=== PATIENT | female | born 1990 | race Caucasian/White ===

== ENCOUNTER 2017-08-06 14:10 | Inpatient (IN) | payer OTHER ==
[2017-08-06 18:47] VITALS: BMI 37.0
[2017-08-06] MEDS ORDERED: DEXTROSE 5%-LACTATED RINGERS 1,000 ML IV SCH (19:00)
[2017-08-06 19:41] LABS: INR 0.87 (0.82-1.09); PROTHROMBIN TIME (PATIENT) 9.8 SEC (9.98-11.88)
[2017-08-06 19:44] LABS: ACTIVATED PTT 30.5 SECONDS (26.9-34.4)
[2017-08-06 20:01] LABS: ANION GAP 10 (8-16); CALCIUM 8.7 mg/dL (8.5-10.1); CO2 22 mmol/L (21-32); CREATININE 0.6 mg/dL (0.55-1.02); GLUCOSE,RANDOM 88 mg/dL (74-106)
[2017-08-06 20:59] LABS: BASOPHIL 0.3 % (0-2.0); EOSINOPHIL 1.2 % (0-4.5); MCH 34.2 pg (25.7-33.7); MCHC 34.1 g/dl (32.0-36.0); MEAN CELL VOLUME 100.2 fl (80-96); MEAN PLT VOLUME 8.8 fl (7.5-11.1); PLATELET COUNT 252 K/MM3 (134-434); WHITE BLOOD COUNT 9.9 K/mm3 (4.0-10.0)
[2017-08-06] MEDS ORDERED: BUTORPHANOL TARTRATE 1 MG/ML VIAL IVPB ONE (23:30)
[2017-08-06] MEDS ORDERED: PROMETHAZINE HCL 25 MG/1 ML VIAL IVPB ONE (23:30)
[2017-08-07] MEDS ORDERED: OXYTOCIN 15 UNITS/ LR 250 ML 250 ML IVPB SCH ×2 (06:00→06:45)
[2017-08-07] MEDS ORDERED: BUTORPHANOL TARTRATE 1 MG/ML VIAL IVPB ONE (06:00)
[2017-08-07] MEDS ORDERED: PROMETHAZINE HCL 25 MG/1 ML VIAL IVPB ONE (06:00)
--- NOTE | 2017-08-07 06:40 | HP ---
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: Alzheimer's, CVA, Dementia, Migraine, Multiple Sclerosis, Peripheral Neuropathy, Parkinson's, Seizure, Syncope, TIA, Vertigo, Other Cardiovascular: No: AFIB, Aneurysm, Aortic Insufficiency, Aortic Stenosis, CAD, CHF, Deep Vein Thrombosis, HTN, Hyperlipdemia, MD, Mitral Insufficiency, Mitral Stenosis, Murmur, Pulmonary Hypertension, Other Pulmonary: No: Asthma, Bronchitis, Cancer, COPD, O2 Dependent, Pneumonia, Previously Intubated, Pulmonary Embolus, Pulmonary Fibrosis, Sleep Apnea, Other Gastrointestinal: No: Ascites, Cancer, Constipation, Crohn's Disease, Diverticulitis, Diverticulosis, Esophageal Varices, Gastritis, GERD, GI Bleed, Hemorrhoids, Hiatal Hernia, Inflamatory Bowel Disease, Irritable Bowel Disease, Pancreatitis, Peptic Ulcer Disease, Ulcerative Colitis, Other Hepatobiliary: No: Cirrhosis, Cholelithiasis, Cholecystitis, Choledocholithiasis , Hepatitis A, Hepatitis B, Hepatitis C, Other Renal/: No: Renal Failure, Renal Inusuff, BPH, Cancer, Hematuria, Hemodialysis , Neurogenic Bladder, Renal Calculi, UTI, Other Reproductive: No: Ectopic , Endometriosis, Fibroids, PID, Polycystic Ovary Syndrome, Postmenopausal, Other ...: 1 ...Para: 0 Heme/Onc: No: Anemia, B12 Deficiency, Bleeding Disorder, Cancer, Current Chemotherapy, Current Radiation Therapy, Hemochromatosis, Hypercoaguable State, Myeloproliferative Synd, Sickle Cell Disease, Sickle Cell Trait, Thrombocytopenia, Other Infectious Disease: No: AIDS, C-Diff, Herpes Zoster, HIV, MRSA, STD's, Tuberculosis, VREF, Other Psych: No: Addictions, Anxiety, Bipolar, Depression, Panic, Psychosis, Schizophrenia, Other Musculoskeletal: No: Bursitis, Chronic low back pain, Hemiparesis, Hemiplegia, Osteoarthritis, Paraplegia, Other Rheumatology: No: Fibromyalgia, Gout, Lupus, Rheumatoid Arthritis, Sarcoidosis, Vasculitis, Other ENT: No: Allergic Rhinitis, Sinusitis, Other - Smoking History Smoking history: Never smoked - Alcohol/Substance Use Hx Alcohol Use: No Home Medications - Allergies Allergies/Adverse Reactions: Allergies Allergy/AdvReac Type Severity Reaction Status Date / Time No Known Allergies Allergy Verified 08/06/17 15:15 - Home Medications Home Medications: Ambulatory Orders 19 Tablet 1 tab PO DAILY 08/06/17 Review of Systems - Review of Systems Constitutional: reports: No Symptoms Eyes: reports: No Symptoms HENT: reports: No Symptoms Neck: reports: No Symptoms Cardiovascular: reports: No Symptoms Respiratory: reports: No Symptoms Gastrointestinal: reports: No Symptoms Genitourinary: reports: No Symptoms Integumentary: reports: No Symptoms Neurological: reports: No Symptoms Endocrine: reports: No Symptoms Physical Examination Vital Signs: Vital Signs Temperature 98.1 F 08/07/17 04:00 Pulse Rate 79 08/07/17 04:00 Respiratory Rate 20 08/07/17 04:00 Blood Pressure 128/78 08/07/17 04:00 O2 Sat by Pulse Oximetry (%) Constitutional: Yes: Well Nourished Eyes: Yes: WNL HENT: Yes: WNL Neck: Yes: WNL Cardiovascular: Yes: WNL Respiratory: Yes: WNL Gastrointestinal: Yes: WNL ...Rectal Exam: Yes: WNL Renal/: Yes: WNL Breast(s): Yes: WNL Extremities: Yes: WNL Neurological: Yes: WNL ...Motor Strength: WNL Psychiatric: Yes: WNL Labs: CBC, BMP 08/06/17 20:49 08/06/17 18:30 Assessment/Plan as above admit labs pitocin
[2017-08-07] MEDS: ELECTROLYTE-148 SOLN 1,000 ML IV SCH ×2 (07:30→10:20)
[2017-08-07] MEDS ORDERED: FENTANYL/BUPIVACAINE/NS/PF - PCEA - 50 ML DISP.SYRIN EP SCH ×2 (08:30→10:23)
--- NOTE | 2017-08-07 09:16 | PN ---
Ante-Partal Exam - Subjective Vital Signs: Vital Signs Temperature 99.7 F H 08/07/17 08:00 Pulse Rate 73 08/07/17 08:45 Respiratory Rate 20 08/07/17 08:45 Blood Pressure 130/73 08/07/17 08:45 O2 Sat by Pulse Oximetry (%) 94 L 08/07/17 08:45 Bleeding: No Headache: No Visual changes: No Right upper quadrant pain: No - Contractions Contractions: Yes Regularity: Regular Intensity: Mild Monitor Mode: External - Exam during Labor Heart Rate: 150 Heart Rate Location: Midline Category: I Monitor Accelerations: Present Monitor Decelerations: None Exam: Vaginal Dilatation (cm): 7 Effacement (%): 100 Amniotic Membrane Status: Ruptured Nitrazine Test: Positive Amniotic Fluid: Clear, Meconium Stained Meconium Staining: Moderate Presentation: Vertex Station: 0 - Assessment/Plan Assessment/Plan: continue care expect
[2017-08-07] MEDS: ACETAMINOPHEN 325 MG TABLET (FP) PO PRN (12:20)
--- NOTE | 2017-08-07 13:23 | PN ---
Progress Note (short form) - Note Progress Note: pt starting to push with good efforts fht with occasional variable 160s expectant management
[2017-08-07] MEDS: OXYTOCIN 20 UNITS in 0.9% NS 1,000 ML IV SCH ×2 (14:27→16:15)
[2017-08-07] MEDS ORDERED: BENZOCAINE 20% 57 GM BOTTLE TP PRN (14:48)
[2017-08-07] MEDS ORDERED: WITCH HAZEL 50% (TUCKS) 40 PAD/JAR PAD TP PRN (14:48)
[2017-08-07] MEDS ORDERED: BENZOCAINE 28 GM HEMORRHOIDAL OINTMENT TP PRN (14:48)
[2017-08-07] MEDS ORDERED: METHYLERGONOVINE MALEATE 0.2 MG/1 ML AMP IM PRN (14:48)
[2017-08-07] MEDS ORDERED: BISACODYL 10 MG SUPP.RECT RC PRN (14:48)
--- NOTE | 2017-08-07 14:48 | PN ---
Delivery - Delivery Type of Anesthesia: Epidural Episiotomy/Laceration: None (4) EBL (cc): 400 Delivery, Single - [place] Feeding Plan Initial Plan: Elected not to breastfeed exclusively throughout hospitalization
[2017-08-07] MEDS: IBUPROFEN 600 MG TABLET (FP) PO PRN (14:55)
[2017-08-07] MEDS ORDERED: D5W-LR W/ 20 UNITS OXYTOCIN 1,000 ML IV SCH (15:00)
[2017-08-07] MEDS ORDERED: CLINDAMYCIN 900 MG PREMIX IVPB 50 ML IVPB SCH (15:00)
[2017-08-07] MEDS ORDERED: AMPICILLIN - 2 GM in SODIUM CHLORIDE 100 ML IVPB SCH (16:00)
[2017-08-07] MEDS ORDERED: AMPICILLIN - 100 ML IVPB SCH (21:00)
[2017-08-07] MEDS ORDERED: AMPICILLIN SODIUM 2 GM VIAL ONE (21:07)
[2017-08-07] MEDS ORDERED: SODIUM CHLORIDE 100 ML IVPB ONE (21:08)
[2017-08-07] MEDS: AMPICILLIN - 2 GM in SODIUM CHLORIDE 100 ML IVPB SCH (21:22)
[2017-08-07] MEDS: CLINDAMYCIN 900 MG PREMIX IVPB 50 ML IVPB SCH (23:18)
[2017-08-08] MEDS: CLINDAMYCIN 900 MG PREMIX IVPB 50 ML IVPB SCH ×2 (03:17→09:39)
[2017-08-08] MEDS ORDERED: AMPICILLIN SODIUM 2 GM VIAL ONE ×3 (03:24→14:59)
[2017-08-08] MEDS ORDERED: SODIUM CHLORIDE 100 ML IVPB ONE ×3 (03:24→15:00)
[2017-08-08] MEDS: AMPICILLIN - 2 GM in SODIUM CHLORIDE 100 ML IVPB SCH ×3 (03:30→15:06)
--- NOTE | 2017-08-08 05:48 | PN ---
Post Progress Note Post Day: 1 Type of Delivery: Vital Signs: Vital Signs Temperature 98.9 F 08/08/17 01:00 Pulse Rate 84 08/08/17 01:00 Respiratory Rate 20 08/08/17 01:00 Blood Pressure 100/50 08/08/17 01:00 O2 Sat by Pulse Oximetry (%) 100 08/07/17 16:00 Breast Exam: Yes: Soft Uterus: Yes: Fundus Firm Abdomen/GI: Yes: Abdomen soft Lochia: Yes: Rubra Lochia, amount: Small Extremities: Yes: Calves non-tender Perineum: Yes: Intact Activity: Ambulating - Labs Labs: CBC WBC 9.9 K/mm3 (4.0-10.0) 08/06/17 20:49 RBC 3.61 M/mm3 (3.60-5.2) 08/06/17 20:49 Hgb 12.3 GM/dL (10.7-15.3) 08/06/17 20:49 Hct 36.2 % (32.4-45.2) 08/06/17 20:49 MCV 100.2 fl (80-96) H 08/06/17 20:49 MCH 34.2 pg (25.7-33.7) H 08/06/17 20:49 MCHC 34.1 g/dl (32.0-36.0) 08/06/17 20:49 RDW 13.0 % (11.6-15.6) 08/06/17 20:49 Plt Count 252 K/MM3 (134-434) 08/06/17 20:49 MPV 8.8 fl (7.5-11.1) 08/06/17 20:49 Neutrophils % 80.0 % (42.8-82.8) 08/06/17 20:49 Lymphocytes % 12.9 % (8-40) 08/06/17 20:49 Monocytes % 5.6 % (3.8-10.2) 08/06/17 20:49 Eosinophils % 1.2 % (0-4.5) 08/06/17 20:49 Basophils % 0.3 % (0-2.0) 08/06/17 20:49 Assessment/Plan continue abx afebrile oob reg diet
[2017-08-08 07:31] LABS: BASOPHIL 0.2 % (0-2.0); EOSINOPHIL 0.7 % (0-4.5); MCH 32.9 pg (25.7-33.7); MCHC 32.7 g/dl (32.0-36.0); MEAN CELL VOLUME 100.7 fl (80-96); MEAN PLT VOLUME 7.8 fl (7.5-11.1); NEUTROPHILS 80.5 % (42.8-82.8); PLATELET COUNT 177 K/MM3 (134-434); RDW 13.2 % (11.6-15.6); WHITE BLOOD COUNT 16.3 K/mm3 (4.0-10.0)
[2017-08-08] MEDS ORDERED: SENNOSIDES/DOCUSATE COMBO (SENNA PLUS) TABLET (UD) PO PRN (22:00)
[2017-08-08] MEDS: ACETAMINOPHEN 325 MG TABLET (FP) PO PRN (22:57)
[2017-08-08] MEDS: IBUPROFEN 600 MG TABLET (FP) PO PRN (22:58)
[2017-08-09 09:44] VITALS: BP 113/72; PULSE 66; TEMP 97.9
--- NOTE | 2017-08-09 11:21 | PN ---
Post Progress Note Post Day: 2 Type of Delivery: Vital Signs: Vital Signs Temperature 97.9 F 08/09/17 09:41 Pulse Rate 66 08/09/17 09:41 Respiratory Rate 20 08/09/17 09:41 Blood Pressure 113/72 08/09/17 09:41 O2 Sat by Pulse Oximetry (%) 100 08/07/17 16:00 Breast Exam: Yes: Soft Uterus: Yes: Fundus Firm Abdomen/GI: Yes: Abdomen soft Lochia: Yes: Rubra Lochia, amount: Small Extremities: Yes: Calves non-tender Perineum: Yes: Intact - Labs Labs: CBC WBC 16.3 K/mm3 (4.0-10.0) H D 08/08/17 06:15 RBC 2.61 M/mm3 (3.60-5.2) L D 08/08/17 06:15 Hgb 8.6 GM/dL (10.7-15.3) L D 08/08/17 06:15 Hct 26.3 % (32.4-45.2) L D 08/08/17 06:15 MCV 100.7 fl (80-96) H 08/08/17 06:15 MCH 32.9 pg (25.7-33.7) 08/08/17 06:15 MCHC 32.7 g/dl (32.0-36.0) 08/08/17 06:15 RDW 13.2 % (11.6-15.6) 08/08/17 06:15 Plt Count 177 K/MM3 (134-434) D 08/08/17 06:15 MPV 7.8 fl (7.5-11.1) D 08/08/17 06:15 Neutrophils % 80.5 % (42.8-82.8) 08/08/17 06:15 Lymphocytes % 12.1 % (8-40) 08/08/17 06:15 Monocytes % 6.5 % (3.8-10.2) 08/08/17 06:15 Eosinophils % 0.7 % (0-4.5) 08/08/17 06:15 Basophils % 0.2 % (0-2.0) 08/08/17 06:15 Assessment/Plan as above dc home today
== END 2017-08-09 14:00 | disposition home or self-care (01) | DRG 560 ==
LOC: JDEL 14:10 → JLDR 18:05 → J3W 08-07 16:40
PROVIDERS: ADMIT Obstetrics & Gynecology; ATTEND Obstetrics & Gynecology
PROC: 10E0XZZ Delivery of Products of Conception, External Approach (ICD-10-PCS; principal; 2017-08-07)
DX: O48.0 Post-term pregnancy (principal); O77.0 Labor and delivery complicated by meconium in amniotic fluid; Z3A.40 40 weeks gestation of pregnancy; Z37.0 Single live birth
CPT/HCPCS: 36415; 59409; 76819-TC; 80048; 85025; 85610; 85730; 86593; 86850; 86900; 86901

== ENCOUNTER 2018-07-24 06:22 | Inpatient (IN) | payer OTHER ==
[2018-07-24] MEDS ORDERED: ELECTROLYTE-148 SOLN 1,000 ML IV SCH (08:05)
[2018-07-24] MEDS ORDERED: AMPICILLIN SODIUM 2 GM VIAL ONE (08:17)
[2018-07-24 08:43] VITALS: BMI 39.6
[2018-07-24 09:09] LABS: BASO % 0.7 % (0-2.0); EOS % 1.6 % (0-4.5); HEMATOCRIT 33.5 % (32.4-45.2); HEMOGLOBIN 11.2 GM/dL (10.7-15.3); MCHC 33.6 g/dl (32.0-36.0); MEAN CELL VOLUME 95.2 fl (80-96); MEAN PLT VOLUME 7.6 fl (7.5-11.1); MONO % 6.3 % (3.8-10.2); NEUT % 78.4 % (42.8-82.8); PLATELET COUNT 312 K/MM3 (134-434); RBC 3.52 M/mm3 (3.60-5.2); RDW 13.5 % (11.6-15.6); WHITE BLOOD COUNT 9.8 K/mm3 (4.0-10.0)
[2018-07-24 09:22] LABS: INR 0.94 (0.83-1.09); PROTHROMBIN TIME (PATIENT) 11.1 SEC (9.7-13.0)
[2018-07-24 09:24] LABS: ANION GAP 10 MMOL/L (8-16); BLOOD UREA NITROGEN 13 mg/dL (7-18); CHLORIDE 106 mmol/L (98-107); CO2 20 mmol/L (21-32); CREATININE 0.6 mg/dL (0.55-1.3); GLUCOSE,RANDOM 84 mg/dL (74-106); SODIUM 137 mmol/L (136-145)
[2018-07-24 09:25] LABS: ACTIVATED PTT 28.6 SECONDS (25.2-36.5)
--- NOTE | 2018-07-24 10:22 | HP ---
Past Medical History - Admission History Source: Patient - Past Medical History Gastrointestinal: No: Ascites, Cancer, Constipation, Crohn's Disease, Diverticulitis, Diverticulosis, Esophageal Varices, Gastritis, GERD, GI Bleed, Hemorrhoids, Hiatal Hernia, Inflamatory Bowel Disease, Irritable Bowel Disease, Pancreatitis, Peptic Ulcer Disease, Ulcerative Colitis, Other Hepatobiliary: No: Cirrhosis, Cholelithiasis, Cholecystitis, Choledocholithiasis , Hepatitis A, Hepatitis B, Hepatitis C, Other Renal/: No: Renal Failure, Renal Inusuff, BPH, Cancer, Hematuria, Hemodialysis , Neurogenic Bladder, Renal Calculi, UTI, Other Reproductive: No: Ectopic , Endometriosis, Fibroids, PID, Polycystic Ovary Syndrome, Postmenopausal, Other ...: 2 ...Para: 1 ...Term: 1 ...: 0 ...Spon : 0 ...Induced : 0 ...Multiple Gestation: 0 ...LMP: 10/25/17 ... Weeks Gestation by Dates: 38.6 ...EDC by Dates: 08/01/18 - Past Surgical History Past Surgical History: No: None, AAA Repair, AICD, Amputation, Appendectomy, Arthrosocopy, AV Fistula/Graft, Bariatric Surgery, Breast Biopsy, Bypass, CABG, Carotid Endarterectomy, Cataract Removal, Cholecystectomy, Colectomy, Colonoscopy, Colostomy, Craniotomy, , Cystectomy, Hernia Repair, Hysterectomy, Ileal Conduit, Ileosotomy, Joint Replacement, Kidney Transplant, Laminectomy, Liver Transplant, Mastectomy, Nephrectomy, Oopherectomy, Orchiectomy, Permanent Pacemaker, Prostatectomy, Splenectomy, Stent, Thoracotomy , TURP, Tonsillectomy, Tubal Ligation, Upper Endoscopy, Valve Replacement, Vasectomy, Vein Stripping/Ligation Hx Myomectomy: No Hx Transabdominal Cerclage: No - Smoking History Smoking history: Never smoked Have you smoked in the past 12 months: No - Alcohol/Substance Use Hx Alcohol Use: No Home Medications - Allergies Allergies/Adverse Reactions: Allergies Allergy/AdvReac Type Severity Reaction Status Date / Time No Known Allergies Allergy Verified 07/24/18 06:59 - Home Medications Home Medications: Ambulatory Orders Ferrous Sulfate [Feosol] 325 mg PO DAILY 07/24/18 Vit 108/Iron/Folic AC [ One Tablet] 1 each PO DAILY 07/24/18 Review of Systems Findings/Remarks: +contractions. Neg VB/LOF. + movement Physical Exam - Maternity Vital Signs: Vital Signs Temperature 98.5 F 07/24/18 08:15 Pulse Rate 88 07/24/18 09:00 Respiratory Rate 20 07/24/18 09:00 Blood Pressure 120/63 07/24/18 09:00 O2 Sat by Pulse Oximetry (%) - Abdominal Exam/OB Contractions: Yes Regularity: Regular Intensity: Moderate Monitor Mode: External Category: I Accelerations: Uniform Decelerations: None - Vaginal Exam/OB Vaginal Bleediing: No Speculum Exam: No Dilatation (cm): 4 Effacement (%): 100 Amniotic Membrane Status: Intact Presentation: Vertex/Position Station: -3 - Physical Exam Edema: No Integumentary: Yes: WNL ...Motor Strength: WNL Psychiatric: Yes: WNL - Labs Lab Results: CBC, BMP 07/24/18 08:50 07/24/18 08:50 Hemorrhage Risk Assessment - Risk Factors Medium Risk Factors: No: Prior , uterine surgery,or multiple laparotomies, Multiple gestation, Greater than 4 previous births, History of previous hemorrhage, Large myomas, EFW greater than 4000g, Obesity ( BMI >40), Hematocrit < 30% & other, None Assessment/Plan 28yo @ 38.6wks here in labor Admit to L&D Cat 1 tracing Epidural prn May need augmentation Anticipate KAIN Pete MD
--- NOTE | 2018-07-24 10:27 | PN ---
Progress Note, Labor Vaginal Exam #1 Labor Exam Date: 07/24/18 Labor Exam Time: 10:27 Heart Rate (range): Cat 1 Dilatation: 5 Effacement (%): 100 Amniotic Membrane Status: Ruptured Presentation: Vertex/Position Station: -3 (AROM, clears Epidural now Anticipate )
[2018-07-24] MEDS ORDERED: FENTANYL/BUPIVACAINE/NS/PF - PCEA - 50 ML DISP.SYRIN EP ONE ×2 (10:31→14:47)
[2018-07-24] MEDS ORDERED: OXYTOCIN 30 UNITS in 0.9% NS 30 UNIT/500 ML INFUS.BAG IVPB SCH (12:45)
[2018-07-24] MEDS ORDERED: OXYTOCIN 30 UNITS in 0.9% NS 30 UNIT/500 ML INFUS.BAG IVPB ONE (12:46)
[2018-07-24] MEDS ORDERED: NALOXONE HCL 0.4 MG/ML VIAL IVPUSH PRN (15:01)
[2018-07-24] MEDS ORDERED: FENTANYL/BUPIVACAINE/NS/PF - PCEA - 50 ML DISP.SYRIN EP SCH (15:15)
[2018-07-24] MEDS ORDERED: OXYTOCIN 20 UNITS in 0.9% NS 20 UNIT/1,000 ML INFUS.BAG IV ONE (16:26)
[2018-07-24] MEDS ORDERED: LIDOCAINE HCL 1% PRESERVATIVE FREE - 30ML VIAL ONE (16:26)
[2018-07-24] MEDS: OXYTOCIN 20 UNITS in 0.9% NS 20 UNIT/1,000 ML INFUS.BAG IV SCH ×2 (17:39→22:16)
[2018-07-24] MEDS ORDERED: BENZOCAINE 20% 57 GM BOTTLE TP PRN (17:43)
[2018-07-24] MEDS ORDERED: BENZOCAINE 28 GM HEMORRHOIDAL OINTMENT TP PRN (17:43)
[2018-07-24] MEDS ORDERED: WITCH HAZEL 50% (TUCKS) 40 PAD/JAR PAD TP PRN (17:43)
[2018-07-24] MEDS ORDERED: BISACODYL 10 MG SUPP.RECT RC PRN (17:43)
--- NOTE | 2018-07-24 17:49 | PN ---
Delivery - Delivery Vaginal Delivery: Spontaneous Type of Anesthesia: Epidural Episiotomy/Laceration: None EBL (cc): 250 Delivery, Single - Stages of Labor Date of Delivery: 07/24/18 Placenta: Yes: Spontaneous - Feeding Plan Initial Plan: Elected not to breastfeed exclusively throughout hospitalization Remarks - Remarks Remarks: of VMI from CLARE position over intact perineum. Epidural anesthesia. 38wk gestation. Spontaneous delivery of anterior shoulder. Infant placed on maternal abdomen. Cord clamped and cut after 2 minutes. handed off. Weight pending to allow sufficient skin to skin. Apgars 8/8. Spontaneous delivery of intact placenta with 3VC. Fundus firm. Perineum inspected, no lacerations. EBL 250ml. Mother and baby doing well. Eros Pete MD
[2018-07-24] MEDS: ACETAMINOPHEN 325 MG TABLET (FP) PO PRN (19:40)
[2018-07-24] MEDS: IBUPROFEN 600 MG TABLET (FP) PO PRN (19:40)
[2018-07-25 06:50] LABS: BASO % 0.3 % (0-2.0); EOS % 1.4 % (0-4.5); HEMATOCRIT 26.9 % (32.4-45.2); HEMOGLOBIN 8.9 GM/dL (10.7-15.3); LYMPH % 12.1 % (8-40); MCH 31.6 pg (25.7-33.7); MCHC 32.9 g/dl (32.0-36.0); MEAN PLT VOLUME 7.3 fl (7.5-11.1); MONO % 7.7 % (3.8-10.2); NEUT % 78.5 % (42.8-82.8); PLATELET COUNT 255 K/MM3 (134-434); RDW 13.4 % (11.6-15.6); WHITE BLOOD COUNT 12.2 K/mm3 (4.0-10.0)
--- NOTE | 2018-07-25 07:52 | PN ---
Post Progress Note Type of Delivery: Vital Signs: Vital Signs Temperature 97.8 F 07/25/18 05:45 Pulse Rate 85 07/25/18 05:45 Respiratory Rate 18 07/25/18 05:45 Blood Pressure 105/57 L 07/25/18 05:45 O2 Sat by Pulse Oximetry (%) 98 07/24/18 19:00 Uterus: Yes: Fundus Firm, Fundus @ umbilicus Abdomen/GI: Yes: Abdomen soft Lochia: Yes: Rubra Lochia, amount: Small Extremities: Yes: Calves non-tender Perineum: Yes: Intact Activity: Ambulating - Labs Labs: CBC WBC 12.2 K/mm3 (4.0-10.0) H 07/25/18 06:00 RBC 2.80 M/mm3 (3.60-5.2) L 07/25/18 06:00 Hgb 8.9 GM/dL (10.7-15.3) L 07/25/18 06:00 Hct 26.9 % (32.4-45.2) L D 07/25/18 06:00 MCV 96.0 fl (80-96) 07/25/18 06:00 MCH 31.6 pg (25.7-33.7) 07/25/18 06:00 MCHC 32.9 g/dl (32.0-36.0) 07/25/18 06:00 RDW 13.4 % (11.6-15.6) 07/25/18 06:00 Plt Count 255 K/MM3 (134-434) 07/25/18 06:00 MPV 7.3 fl (7.5-11.1) L 07/25/18 06:00 Absolute Neuts (auto) 9.6 K/mm3 (1.5-8.0) H 07/25/18 06:00 Neutrophils % 78.5 % (42.8-82.8) 07/25/18 06:00 Lymphocytes % 12.1 % (8-40) 07/25/18 06:00 Monocytes % 7.7 % (3.8-10.2) 07/25/18 06:00 Eosinophils % 1.4 % (0-4.5) 07/25/18 06:00 Basophils % 0.3 % (0-2.0) 07/25/18 06:00 Nucleated RBC % 0 % (0-0) 07/25/18 06:00 Problem List - Problems (1) (normal spontaneous vaginal delivery) Code(s): O80 - ENCOUNTER FOR FULL-TERM UNCOMPLICATED DELIVERY Assessment/Plan 28yo s/p , PPD#1 -Rh pos/RI -Routine PP care, po pain control -Labs reviewed -Anticipate d/c to home PPD#2 Eros Pete MD
[2018-07-25] MEDS: PRENATAL VITAMINS W/ FOLIC ACID TABLET (FP) PO SCH (10:11)
[2018-07-25] MEDS: IBUPROFEN 600 MG TABLET (FP) PO PRN (17:37)
[2018-07-25] MEDS: ACETAMINOPHEN 325 MG TABLET (FP) PO PRN (17:38)
[2018-07-25] MEDS ORDERED: SENNOSIDES/DOCUSATE COMBO (SENNA PLUS) TABLET (UD) PO PRN (22:00)
[2018-07-26] MEDS: IBUPROFEN 600 MG TABLET (FP) PO PRN ×2 (01:16→08:21)
[2018-07-26] MEDS: ACETAMINOPHEN 325 MG TABLET (FP) PO PRN ×2 (01:17→08:22)
[2018-07-26] MEDS: PRENATAL VITAMINS W/ FOLIC ACID TABLET (FP) PO SCH (09:17)
[2018-07-26 09:55] VITALS: BP 113/83; PULSE 81; TEMP 98.6
--- NOTE | 2018-07-26 11:42 | DS ---
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 Vital Signs: Vital Signs Temperature 98.6 F 07/26/18 08:15 Pulse Rate 81 07/26/18 08:15 Respiratory Rate 20 07/26/18 08:15 Blood Pressure 113/83 07/26/18 08:15 O2 Sat by Pulse Oximetry (%) 98 07/24/18 19:00 Constitutional: Yes: Well Nourished Eyes: Yes: Conjunctiva Clear HENT: Yes: Atraumatic Neck: Yes: Supple Cardiovascular: Yes: Regular Rate and Rhythm Respiratory: Yes: Regular Gastrointestinal: Yes: Normal Bowel Sounds Pelvis: Yes: WNL External Genitalia: Yes: Normal Vaginal Exam: Yes: Normal Cervix: Yes: Normal Uterus: Yes: Normal ....Post : Yes: Uterus firm, Moderate lochia serosa Breast(s): Yes: WNL Musculoskeletal: Yes: WNL Extremities: Yes: WNL Neurological: Yes: Alert, Oriented ...Motor Strength: WNL Psychiatric: Yes: Alert, Oriented Labs: CBC, BMP 07/25/18 06:00 07/24/18 08:50 Delivery - Delivery Vaginal Delivery: Spontaneous Type of Anesthesia: Epidural Episiotomy/Laceration: None EBL (cc): 250 Delivery, Single - Stages of Labor Date 1st Stage Initiatied: 07/23/18 Time 1st Stage Initiated: 21:00 Date 2nd Stage Initiated: 07/24/18 Time 2nd Stage Initiated: 17:25 Date of Delivery: 07/24/18 Time of Delivery: 17:25 Time Placenta Delivered: 17:39 Placenta: Yes: Spontaneous - Condition of 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 Present: [place]: Susan Francois Infant Gender: Male Weight: 7 lb 6 oz Position: Left, OA Total Hours ROM (Hrs/Mins): 7hrs/14mins - 1 Minute Total Score: 8 5 Minutes Total Score: 8 - Feeding Plan Initial Plan: Elected not to breastfeed exclusively throughout hospitalization Discharge Summary Reason For Visit: LABOR ADMIT Current Active Problems (normal spontaneous vaginal delivery) (Acute) Procedures: Principal: Normal spontaneous vaginal delivery Hospital Course: Routine care Condition: Good - Instructions Diet, Activity, Other Instructions: Regular diet No douching, no sexual intercourse x 6 weeks F/U in clinic in 6 weeks If fever, pain, or heavy bleeding, call M.D. [facility]: [phone] Disposition: HOME - Home Medications Comprehensive Discharge Medication List: Ambulatory Orders Ferrous Sulfate [Feosol] 325 mg PO DAILY 07/24/18 Vit 108/Iron/Folic AC [ One Tablet] 1 each PO DAILY 07/24/18
== END 2018-07-26 13:15 | disposition home or self-care (01) | DRG 560 ==
LOC: JDEL 06:22 → JLDR 08:05 → J3W 19:18
PROVIDERS: ADMIT Obstetrics & Gynecology; ATTEND Obstetrics & Gynecology
PROC: 10E0XZZ Delivery of Products of Conception, External Approach (ICD-10-PCS; principal; 2018-07-24)
DX: O99.214 Obesity complicating childbirth (principal); E66.9 Obesity, unspecified; Z68.41 Body mass index [BMI] 40.0-44.9, adult; Z3A.38 38 weeks gestation of pregnancy; Z37.0 Single live birth
CPT/HCPCS: 36415; 59025; 59409; 80048; 85025; 85610; 85730; 86593; 86850; 86900; 86901

== ENCOUNTER 2018-08-22 12:21 | Emergency (ER) | payer OTHER ==
[2018-08-22 12:41] VITALS: BP 105/53; PULSE 93; TEMP 99.7; BMI 36.1
[2018-08-22] MEDS ORDERED: DEXAMETHASONE 4 MG TABLET (FP) PO ONE (13:22)
--- NOTE | 2018-08-22 13:22 | PDOC ---
History of Present Illness - General Stated Complaint: SORE THROAT Time Seen by Provider: 08/22/18 12:58 History Source: Patient Exam Limitations: No Limitations - History of Present Illness Initial Comments: 08/22/18 13:42 Patient is a 28-year-old female with no past medical history who presents to emergency department today for 3 days of sore throat. Patient states that it hurts to swallow and the patient's pain has gotten worse over the past 3 days. Denies fevers, chills, difficulty swallowing, earache, congestion, nausea, vomiting and diarrhea. Past History - Travel Traveled outside of the country in the last 30 days: No Close contact w/someone who was outside of country & ill: No - Past Medical History Allergies/Adverse Reactions: Allergies Allergy/AdvReac Type Severity Reaction Status Date / Time No Known Allergies Allergy Verified 08/22/18 12:37 Home Medications: Ambulatory Orders NK [No Known Home Medication] 08/22/18 Asthma: No Cancer: No Cardiac Disorders: No COPD: No Diabetes: No HTN: No Seizures: No Thyroid Disease: No - Suicide/Smoking/Psychosocial Hx Smoking History: Never smoked Have you smoked in the past 12 months: No Hx Alcohol Use: No Drug/Substance Use Hx: No Hx Substance Use Treatment: No Review of Systems - Review of Systems Able to Perform ROS?: Yes Comments:: 08/22/18 13:40 CONSTITUTIONAL: Absent: fever, chills, diaphoresis, generalized weakness, malaise, loss of appetite HEENT: Present: sore throat Absent: rhinorrhea, nasal congestion, throat swelling, difficulty swallowing, mouth swelling, ear pain, eye pain, visual Changes CARDIOVASCULAR: Absent: chest pain, loss of consciousness, palpitations, irregular heart rate, peripheral edema RESPIRATORY: Absent: cough, shortness of breath, dyspnea with exertion, orthopnea, wheezing, stridor, hemoptysis MUSCULOSKELETAL: Absent: myalgia, arthralgia, joint swelling SKIN: Absent: rash, itching, pallor NEUROLOGIC: Absent: headache, focal weakness or paresthesias, dizziness, unsteady gait, seizure, mental status changes, bladder or bowel incontinence PSYCHIATRIC: Absent: anxiety, depression, suicidal or homicidal ideation, hallucinations. Is the patient limited Tamazight proficient: No *Physical Exam - Vital Signs Last Vital Signs Temp Pulse Resp BP Pulse Ox 99.7 F H 93 H 16 105/53 L 99 08/22/18 12:37 08/22/18 12:37 08/22/18 12:37 08/22/18 12:37 08/22/18 12:37 - Physical Exam Comments: 08/22/18 13:41 GENERAL: Well developed, well nourished. Awake and alert. No acute distress. HEENT: Normocephalic, atraumatic. PERRLA, EOMI. No conjunctival pallor. Sclera are non- icteric. Moist mucous membranes. Oropharynx is erythematous. Vesicles to upper soft pallet. NECK: Supple. Full ROM. No JVD. Carotid pulses 2+ and symmetric, without bruits. No thyromegaly. No lymphadenopathy. SKIN: Warm and dry. Normal capillary refill. No rashes. No jaundice. NEUROLOGICAL: Alert, awake, appropriate. Cranial nerves 2-12 intact. No deficits to light touch and temperature in face, upper extremities and lower extremities. No motor deficits in the in face, upper extremities and lower extremities. Normoreflexic in the upper and lower extremities. Normal speech. Toes are down- going bilaterally. Gait is normal without ataxia. PSYCHIATRIC: Cooperative. Good eye contact. Appropriate mood and affect. Medical Decision Making - Medical Decision Making 08/22/18 13:43 Patient is a 8-year-old female who presents emergency department today for 3 days of throat pain Throat exam with erythema to the tonsils and soft palette. + vesicle looking structures to the soft palette. Prednisone given for throat pain at this time. Rapid strep is negative at this time. Most likely a virus DC home with supportive treatment. I discussed the physical exam findings, ancillary test results and final diagnoses with the patient. I answered all of the patient's questions. The patient was satisfied with the care received and felt comfortable with the discharge plan and treatment plan. The Patient agrees to follow up with the primary care physician/specialist within 24-72 hours. Return precautions were given. *DC/Admit/Observation/Transfer Diagnosis at time of Disposition: Pharyngitis Qualifiers: Pharyngitis/tonsillitis etiology: unspecified etiology Qualified Code(s): J02.9 - Acute pharyngitis, unspecified - Discharge Dispostion Disposition: HOME Condition at time of disposition: Stable Decision to Admit order: No - Referrals Referrals: Javi Carver MD [Staff Physician] - - Patient Instructions Printed Discharge Instructions: DI for Pharyngitis/Tonsillopharyngitis -- Adult Additional Instructions: You have a sore throat. Your rapid strep test was negative today. This is most likely a virus. Please take Motrin 800 mg every 8 hours as needed for pain. Warm tea and cough drops may help with the pain as well. Please follow-up with your primary care doctor this week. Return to the emergency department for worsening pain, difficulty swallowing, or give any changes in your symptoms. - Post Discharge Activity
[2018-08-22] MEDS ORDERED: DEXAMETHASONE SOD PHOSPHATE 10 MG/1 ML VIAL ONE (13:29)
== END 2018-08-22 14:30 | disposition home or self-care (01) ==
LOC: JERFT 12:21 → JER 12:21 → JERFT 14:30
DX: J02.9 Acute pharyngitis, unspecified (principal)
CPT/HCPCS: 87070; 87430; 99281-25